=== PATIENT | female | born 1965 | race African-American/Black ===

== ENCOUNTER 2021-10-03 18:30 | Inpatient (IN) ==
[2021-10-03] MEDS ORDERED: ASPIRIN 325 MG TABLET PO STA (20:33)
[2021-10-03 20:40] LABS: Basophils % 0.2 % (0.0-0.8); Eosinophils % 0.1 % (0.00-10.9); Hematocrit 39.3 VOL% (35.7-47.0); Hemoglobin 13.5 GM/DL (12.0-16.0); Immature Granulocytes % 0.8 %; Immature Granulocytes Absolute 0.08 #; Lymphocytes # 1.4 10*3/uL (1.4-4.0); Lymphocytes % 13.1 % (21.3-54.2); Mean Corpuscular HGB Conc 34.4 GM/DL (32-36); Mean Corpuscular Volume 84.7 FL (87-102); Mean Platelet Volume 9.8 FL (9.6-12.0); Monocytes % 4.6 % (1.7-12.7); Neutrophils % 81.2 % (38.7-73.9); Platelet Count 423 T/CUMM (130-400); Red Blood Count 4.64 MC/CUMM (3.8-5.5); Red Cell Distribution Width 13.2 % (9.3-17.3); White Blood Count 10.6 T/CUMM (4-12)
[2021-10-03 20:50] LABS: Calcium 8.8 MG/DL (8.5-10.1); Potassium 3.5 MMOL/L (3.5-5.1)
[2021-10-03] MEDS ORDERED: GLUCAGON 1 MG VIAL IM PRN (23:42)
[2021-10-03] MEDS ORDERED: DEXTROSE 50% 25 GM/50 ML VIAL IV PRN (23:42)
[2021-10-03] MEDS ORDERED: hydrALAZINE 20 MG/1 ML VIAL IV PRN (23:55)
[2021-10-03] MEDS ORDERED: ACETAMINOPHEN 325 MG TABLET PO PRN (23:55)
[2021-10-03] MEDS ORDERED: SIMETHICONE CHEW 125 MG TABLET PO PRN (23:55)
[2021-10-03] MEDS ORDERED: ONDANSETRON 4 MG/2 ML VIAL IV PRN (23:55)
[2021-10-03] MEDS ORDERED: guaiFENesin/CODEINE 5 ML LIQUID PO PRN (23:59)
[2021-10-04 00:25] LABS: Bacteria,Urine Occasional /HPF (Few); Bilirubin,Urine Negative (Negative); Blood, Urine Negative (Negative); Glucose,Urine (UA) Negative (Negative); Hyaline Casts,Urine 1 /LPF (0-3); Ketones,Urine 5 mg/dL (Negative); Mucus,Urine Occasional /LPF (Occasional); Nitrite,Urine Negative (Negative); Protein,Urine Negative; RBC,Urine 2 /HPF (0-4); Squamous Epithelial Cell,Urine Occasional /HPF (0-10); Urine Appearance CLEAR (Clear); Urine Color Yellow (Yellow); Urine Specific Gravity 1.011 (1.001-1.035); Urine Urobilinogen < 2.0 EU/DL (0.2-1.0)
[2021-10-04 00:35] LABS: INR 1.1; PT Patient Result 12.4 SECS (10.5-12.0); Partial Thromboplastin Time 25.4 SECS (23.8-32.1)
[2021-10-04] MEDS ORDERED: AZITHROMYCIN INJ 500 MG in SODIUM CHLORIDE 0.9% 250 ML IV ONE (01:00)
[2021-10-04] MEDS ORDERED: DEXTROSE 50% 25 GM/50 ML SYRINGE IV PRN (02:00)
[2021-10-04 02:22] VITALS: BP 137/89
[2021-10-04] MEDS ORDERED: REMDESIVIR 200 MG in SODIUM CHLORIDE 0.9% 210 ML IV ONE (05:00)
[2021-10-04 06:31] LABS: Basophils % 0.3 % (0.0-0.8); Eosinophils # 0.1 10*3/uL (0.0-0.87); Eosinophils % 0.8 % (0.00-10.9); Hematocrit 36.6 VOL% (35.7-47.0); Hemoglobin 12.3 GM/DL (12.0-16.0); Immature Granulocytes % 0.9 %; Immature Granulocytes Absolute 0.07 #; Lymphocytes # 1.3 10*3/uL (1.4-4.0); Lymphocytes % 17.2 % (21.3-54.2); Mean Corpuscular HGB Conc 33.6 GM/DL (32-36); Mean Corpuscular Volume 85.9 FL (87-102); Monocytes % 4.1 % (1.7-12.7); Neutrophils % 76.7 % (38.7-73.9); Platelet Count 401 T/CUMM (130-400); Red Blood Count 4.26 MC/CUMM (3.8-5.5); Red Cell Distribution Width 13.2 % (9.3-17.3); White Blood Count 7.8 T/CUMM (4-12)
[2021-10-04 07:04] LABS: Ferritin 560.4 ng/mL (8-252); Risk Ratio 5.04; Thyroid Stimulating Hormone 3.63 uIU/ml (0.358-3.74); VLDL Cholesterol 23.6 MG/DL
[2021-10-04 08:47] LABS: Calcium 8.6 MG/DL (8.5-10.1); Osmolality,Calculated 275.5 MOS/KG (273-304); Potassium 3.5 MMOL/L (3.5-5.1)
[2021-10-04] MEDS: CHOLECALCIFEROL 1,000 UNIT TABLET PO SCH (09:09)
[2021-10-04] MEDS: ASCORBIC ACID 500 MG TABLET PO SCH ×2 (09:09→20:00)
[2021-10-04] MEDS: FAMOTIDINE 20 MG TABLET PO SCH ×2 (09:09→20:00)
[2021-10-04] MEDS: ENOXAPARIN 40 MG/0.4 ML SYRINGE SUBCUT SCH (09:09)
[2021-10-04] MEDS: ZINC GLUCONATE 50 MG TABLET PO SCH (09:09)
[2021-10-04] MEDS: CETIRIZINE 10 MG TABLET PO SCH (09:09)
[2021-10-04] MEDS: DOCUSATE SODIUM 100 MG CAPSULE PO SCH ×2 (09:09→20:00)
[2021-10-04] MEDS: DEXAMETHASONE 4 MG/1 ML VIAL IV SCH (09:09)
[2021-10-04] MEDS ORDERED: ALBUTEROL/IPRATROPIUM 3 ML NEB RESP TX PRN (14:50)
[2021-10-04] MEDS: cefTRIAXone 2,000 MG in SODIUM CHLORIDE 0.9% 100 ML IV SCH (15:15)
[2021-10-04] MEDS: ALBUTEROL 2.5 MG/3 ML NEB RESP TX SCH ×2 (16:35→23:37)
[2021-10-05] MEDS: ALBUTEROL 2.5 MG/3 ML NEB RESP TX SCH ×3 (03:51→20:22)
[2021-10-05] MEDS: REMDESIVIR 100 MG in SODIUM CHLORIDE 0.9% 100 ML IV SCH (08:39)
[2021-10-05] MEDS: DOCUSATE SODIUM 100 MG CAPSULE PO SCH ×2 (09:34→20:05)
[2021-10-05] MEDS: DEXAMETHASONE 4 MG/1 ML VIAL IV SCH (09:34)
[2021-10-05] MEDS: AZITHROMYCIN 250 MG TABLET PO SCH (09:35)
[2021-10-05] MEDS: CHOLECALCIFEROL 1,000 UNIT TABLET PO SCH (09:35)
[2021-10-05] MEDS: ENOXAPARIN 40 MG/0.4 ML SYRINGE SUBCUT SCH (09:35)
[2021-10-05] MEDS: ZINC GLUCONATE 50 MG TABLET PO SCH (09:35)
[2021-10-05] MEDS: FAMOTIDINE 20 MG TABLET PO SCH ×2 (09:35→20:05)
[2021-10-05] MEDS: ASCORBIC ACID 500 MG TABLET PO SCH ×2 (09:35→20:05)
[2021-10-05] MEDS: CETIRIZINE 10 MG TABLET PO SCH (09:35)
[2021-10-05 09:56] LABS: Basophils % 0.4 % (0.0-0.8); Eosinophils # 0.1 10*3/uL (0.0-0.87); Eosinophils % 1.5 % (0.00-10.9); Hematocrit 36.9 VOL% (35.7-47.0); Hemoglobin 12.1 GM/DL (12.0-16.0); Immature Granulocytes % 0.8 %; Immature Granulocytes Absolute 0.08 #; Lymphocytes # 1.9 10*3/uL (1.4-4.0); Mean Corpuscular HGB Conc 32.8 GM/DL (32-36); Mean Corpuscular Volume 87.2 FL (87-102); Mean Platelet Volume 9.2 FL (9.6-12.0); Monocytes % 4.8 % (1.7-12.7); Neutrophils % 72.5 % (38.7-73.9); Platelet Count 486 T/CUMM (130-400); Red Blood Count 4.23 MC/CUMM (3.8-5.5); Red Cell Distribution Width 13.5 % (9.3-17.3); White Blood Count 9.6 T/CUMM (4-12)
[2021-10-05 10:21] LABS: Band Neutrophils 3 % (0-10); Eosinophils 3 % (0-10); Lymphocytes 17 % (20-55); Platelet Estimate Normal; Segmented Neutrophils 69 % (50-85); Total Cells Counted 100
[2021-10-05 10:22] LABS: Anisocytosis 1+
[2021-10-05 10:25] LABS: Albumin 2.6 G/DL (3.4-5.0); Bilirubin,Total 0.4 MG/DL (0.20-1.00); Calcium 8.6 MG/DL (8.5-10.1); Osmolality,Calculated 275.8 MOS/KG (273-304); Potassium 3.3 MMOL/L (3.5-5.1); Total Protein 7.2 G/DL (6.4-8.2)
[2021-10-05] MEDS ORDERED: POTASSIUM CHLORIDE RIDER 10 MEQ/100 ML PREMIX IV PRN (13:55)
[2021-10-05] MEDS: cefTRIAXone 2,000 MG in SODIUM CHLORIDE 0.9% 100 ML IV SCH (16:28)
[2021-10-05] MEDS: ALBUTEROL INHALER 18 GM INH SCH ×3 (16:56→22:55)
[2021-10-05] MEDS: POTASSIUM CHLORIDE 20 MEQ TABLET PO PRN ×2 (20:05→22:55)
[2021-10-06] MEDS: POTASSIUM CHLORIDE 20 MEQ TABLET PO PRN (00:45)
[2021-10-06] MEDS: ALBUTEROL INHALER 18 GM INH SCH ×5 (03:45→20:00)
[2021-10-06 06:02] LABS: Basophils # 0.1 10*3/uL (0.0-0.2); Basophils % 0.5 % (0.0-0.8); Eosinophils # 0.2 10*3/uL (0.0-0.87); Eosinophils % 1.7 % (0.00-10.9); Hematocrit 36.1 VOL% (35.7-47.0); Immature Granulocytes Absolute 0.13 #; Lymphocytes # 2.3 10*3/uL (1.4-4.0); Lymphocytes % 17.3 % (21.3-54.2); Mean Corpuscular HGB Conc 33.2 GM/DL (32-36); Mean Corpuscular Volume 88.5 FL (87-102); Mean Platelet Volume 9.8 FL (9.6-12.0); Monocytes % 5.4 % (1.7-12.7); Neutrophils % 74.1 % (38.7-73.9); Platelet Count 507 T/CUMM (130-400); Red Blood Count 4.08 MC/CUMM (3.8-5.5); Red Cell Distribution Width 13.2 % (9.3-17.3); White Blood Count 13.2 T/CUMM (4-12)
[2021-10-06 06:39] LABS: Alanine Aminotransferase 114 U/L (13-56); Albumin 2.6 G/DL (3.4-5.0); Alkaline Phosphatase 72 U/L (45-117); Aspartate Amino Transferase 52 U/L (0-37); Bilirubin,Total < 0.39 MG/DL (0.20-1.00); Blood Urea Nitrogen 11 MG/DL (7-18); Calcium 8.7 MG/DL (8.5-10.1); Carbon Dioxide 23 MMOL/L (21-32); Estimated Glom Filtration Rate 112 ML/MIN; Glucose 147 MG/DL (74-106); Osmolality,Calculated 278.5 MOS/KG (273-304); Potassium 3.5 MMOL/L (3.5-5.1); Sodium 139 MMOL/L (136-145)
[2021-10-06] MEDS: DOCUSATE SODIUM 100 MG CAPSULE PO SCH ×2 (09:57→20:00)
[2021-10-06] MEDS: DEXAMETHASONE 4 MG/1 ML VIAL IV SCH (09:57)
[2021-10-06] MEDS: ASCORBIC ACID 500 MG TABLET PO SCH ×2 (09:58→20:00)
[2021-10-06] MEDS: FAMOTIDINE 20 MG TABLET PO SCH ×2 (09:58→20:00)
[2021-10-06] MEDS: CETIRIZINE 10 MG TABLET PO SCH (09:58)
[2021-10-06] MEDS: AZITHROMYCIN 250 MG TABLET PO SCH (09:58)
[2021-10-06] MEDS: CHOLECALCIFEROL 1,000 UNIT TABLET PO SCH (09:58)
[2021-10-06] MEDS: REMDESIVIR 100 MG in SODIUM CHLORIDE 0.9% 100 ML IV SCH (09:58)
[2021-10-06] MEDS: ENOXAPARIN 60 MG/0.6 ML SYRINGE SUBCUT SCH ×2 (09:58→20:00)
[2021-10-06] MEDS: ZINC GLUCONATE 50 MG TABLET PO SCH (09:58)
[2021-10-06] MEDS: cefTRIAXone 2,000 MG in SODIUM CHLORIDE 0.9% 100 ML IV SCH (14:31)
[2021-10-07] MEDS: ALBUTEROL INHALER 18 GM INH SCH ×6 (03:54→20:49)
[2021-10-07 06:00] LABS: Basophils # 0.1 10*3/uL (0.0-0.2); Basophils % 0.5 % (0.0-0.8); Eosinophils # 0.3 10*3/uL (0.0-0.87); Eosinophils % 2.3 % (0.00-10.9); Hematocrit 33.2 VOL% (35.7-47.0); Hemoglobin 11.5 GM/DL (12.0-16.0); Immature Granulocytes % 1.2 %; Immature Granulocytes Absolute 0.14 #; Lymphocytes # 2.4 10*3/uL (1.4-4.0); Lymphocytes % 20.3 % (21.3-54.2); Mean Corpuscular HGB Conc 34.6 GM/DL (32-36); Mean Corpuscular Volume 87.8 FL (87-102); Mean Platelet Volume 8.9 FL (9.6-12.0); Monocytes % 6.5 % (1.7-12.7); Neutrophils % 69.2 % (38.7-73.9); Platelet Count 589 T/CUMM (130-400); Red Blood Count 3.78 MC/CUMM (3.8-5.5); Red Cell Distribution Width 13.3 % (9.3-17.3); White Blood Count 11.9 T/CUMM (4-12)
[2021-10-07 06:25] LABS: Albumin 2.4 G/DL (3.4-5.0); Bilirubin,Total 0.8 MG/DL (0.20-1.00); Calcium 8.3 MG/DL (8.5-10.1); Osmolality,Calculated 277.5 MOS/KG (273-304); Potassium 3.6 MMOL/L (3.5-5.1); Total Protein 6.7 G/DL (6.4-8.2)
[2021-10-07] MEDS: DEXAMETHASONE 4 MG/1 ML VIAL IV SCH (08:41)
[2021-10-07] MEDS: ENOXAPARIN 60 MG/0.6 ML SYRINGE SUBCUT SCH ×2 (08:41→20:49)
[2021-10-07] MEDS: FAMOTIDINE 20 MG TABLET PO SCH ×2 (08:42→20:49)
[2021-10-07] MEDS: ASCORBIC ACID 500 MG TABLET PO SCH ×2 (08:42→20:49)
[2021-10-07] MEDS: AZITHROMYCIN 250 MG TABLET PO SCH (08:42)
[2021-10-07] MEDS: REMDESIVIR 100 MG in SODIUM CHLORIDE 0.9% 100 ML IV SCH (08:42)
[2021-10-07] MEDS: ZINC GLUCONATE 50 MG TABLET PO SCH (08:42)
[2021-10-07] MEDS: DOCUSATE SODIUM 100 MG CAPSULE PO SCH ×2 (08:42→20:49)
[2021-10-07] MEDS: CHOLECALCIFEROL 1,000 UNIT TABLET PO SCH (08:42)
[2021-10-07] MEDS: CETIRIZINE 10 MG TABLET PO SCH (08:42)
[2021-10-07] MEDS ORDERED: FUROSEMIDE 20 MG/2 ML VIAL IV ONE (09:15)
[2021-10-07] MEDS: cefTRIAXone 2,000 MG in SODIUM CHLORIDE 0.9% 100 ML IV SCH (15:30)
[2021-10-08] MEDS: ALBUTEROL INHALER 18 GM INH SCH ×6 (01:01→20:12)
[2021-10-08 05:39] LABS: Basophils % 0.4 % (0.0-0.8); Eosinophils # 0.1 10*3/uL (0.0-0.87); Eosinophils % 0.9 % (0.00-10.9); Hematocrit 34.8 VOL% (35.7-47.0); Hemoglobin 11.9 GM/DL (12.0-16.0); Immature Granulocytes % 1.7 %; Immature Granulocytes Absolute 0.17 #; Lymphocytes # 2.9 10*3/uL (1.4-4.0); Lymphocytes % 28.4 % (21.3-54.2); Mean Corpuscular HGB Conc 34.2 GM/DL (32-36); Mean Corpuscular Volume 88.1 FL (87-102); Monocytes % 6.1 % (1.7-12.7); Neutrophils % 62.5 % (38.7-73.9); Platelet Count 559 T/CUMM (130-400); Red Blood Count 3.95 MC/CUMM (3.8-5.5); Red Cell Distribution Width 13.3 % (9.3-17.3); White Blood Count 10.1 T/CUMM (4-12)
[2021-10-08 06:02] LABS: Albumin 2.5 G/DL (3.4-5.0); Bilirubin,Total 1.4 MG/DL (0.20-1.00); Calcium 8.8 MG/DL (8.5-10.1); Osmolality,Calculated 280.3 MOS/KG (273-304); Potassium 3.6 MMOL/L (3.5-5.1); Total Protein 6.9 G/DL (6.4-8.2)
[2021-10-08] MEDS: CHOLECALCIFEROL 1,000 UNIT TABLET PO SCH (08:22)
[2021-10-08] MEDS: ENOXAPARIN 60 MG/0.6 ML SYRINGE SUBCUT SCH (08:22)
[2021-10-08] MEDS: DEXAMETHASONE 4 MG/1 ML VIAL IV SCH (08:22)
[2021-10-08] MEDS: FAMOTIDINE 20 MG TABLET PO SCH ×2 (08:22→20:09)
[2021-10-08] MEDS: ASCORBIC ACID 500 MG TABLET PO SCH ×2 (08:22→20:09)
[2021-10-08] MEDS: REMDESIVIR 100 MG in SODIUM CHLORIDE 0.9% 100 ML IV SCH (08:23)
[2021-10-08] MEDS: AZITHROMYCIN 250 MG TABLET PO SCH (08:23)
[2021-10-08] MEDS: ZINC GLUCONATE 50 MG TABLET PO SCH (08:23)
[2021-10-08] MEDS: DOCUSATE SODIUM 100 MG CAPSULE PO SCH ×2 (08:23→20:09)
[2021-10-08] MEDS: CETIRIZINE 10 MG TABLET PO SCH (08:23)
[2021-10-08] MEDS ORDERED: FUROSEMIDE 20 MG/2 ML VIAL IV ONE (10:30)
[2021-10-08] MEDS: cefTRIAXone 2,000 MG in SODIUM CHLORIDE 0.9% 100 ML IV SCH (16:00)
[2021-10-08] MEDS ORDERED: ENOXAPARIN 100 MG/ML SYRINGE SUBCUT ONE (19:31)
[2021-10-08] MEDS: ENOXAPARIN 100 MG/ML SYRINGE SUBCUT SCH (20:09)
[2021-10-09] MEDS: ALBUTEROL INHALER 18 GM INH SCH ×3 (00:24→08:48)
[2021-10-09 05:23] LABS: Basophils % 0.3 % (0.0-0.8); Eosinophils # 0.1 10*3/uL (0.0-0.87); Eosinophils % 0.6 % (0.00-10.9); Hematocrit 36.8 VOL% (35.7-47.0); Immature Granulocytes Absolute 0.12 #; Lymphocytes # 3.5 10*3/uL (1.4-4.0); Lymphocytes % 30.7 % (21.3-54.2); Mean Corpuscular HGB Conc 32.6 GM/DL (32-36); Mean Corpuscular Volume 87.4 FL (87-102); Mean Platelet Volume 9.4 FL (9.6-12.0); Monocytes % 5.7 % (1.7-12.7); Neutrophils % 61.7 % (38.7-73.9); Platelet Count 599 T/CUMM (130-400); Red Blood Count 4.21 MC/CUMM (3.8-5.5); Red Cell Distribution Width 13.2 % (9.3-17.3); White Blood Count 11.5 T/CUMM (4-12)
[2021-10-09 05:52] LABS: Albumin 2.5 G/DL (3.4-5.0); Bilirubin,Total 0.6 MG/DL (0.20-1.00); Calcium 8.7 MG/DL (8.5-10.1); Osmolality,Calculated 281.4 MOS/KG (273-304); Potassium 3.8 MMOL/L (3.5-5.1)
[2021-10-09 05:56] LABS: Anisocytosis Slight; Platelet Estimate Increased
[2021-10-09] MEDS ORDERED: FUROSEMIDE 20 MG/2 ML VIAL IV ONE (08:03)
[2021-10-09] MEDS: FAMOTIDINE 20 MG TABLET PO SCH (08:49)
[2021-10-09] MEDS: ASCORBIC ACID 500 MG TABLET PO SCH (08:49)
[2021-10-09] MEDS: ZINC GLUCONATE 50 MG TABLET PO SCH (08:49)
[2021-10-09] MEDS: DEXAMETHASONE 4 MG/1 ML VIAL IV SCH (08:49)
[2021-10-09] MEDS: ENOXAPARIN 100 MG/ML SYRINGE SUBCUT SCH (08:49)
[2021-10-09] MEDS: CHOLECALCIFEROL 1,000 UNIT TABLET PO SCH (08:49)
[2021-10-09] MEDS: CETIRIZINE 10 MG TABLET PO SCH (08:49)
[2021-10-09] MEDS: DOCUSATE SODIUM 100 MG CAPSULE PO SCH (08:49)
== END 2021-10-09 13:30 | disposition home or self-care (01) | DRG 177 ==
LOC: N.ED 18:30 → N.EDINP 10-04 00:26 → N.CC 10-04 00:27
PROVIDERS: ADMIT Internal Medicine; ATTEND Internal Medicine